=== PATIENT | female | born 1940 | race Caucasian/White ===

== ENCOUNTER → 2021-05-09 10:06 | Outpatient (CLI) | payer MEDICARE, SELFPAY ==
[2021-05-09 14:13] LABS: COVID19 -Nasal RAPID Negative (Negative)
== END ==
PROVIDERS: Family Provider Internal Medicine Geriatric Medicine; Visit Provider Nurse Practitioner Family
DX: Z20.822 Contact with and (suspected) exposure to COVID-19 (principal)
CPT/HCPCS: 87635; C9803

== ENCOUNTER 2021-05-11 07:14 | Day surgery (SDC) | payer MEDICARE, SELFPAY ==
--- NOTE | 2021-05-10 18:42 | PM.PREOP ---
Pre-operative Note COVID-19 COVID-19 status: Negative Criteria for continued procedure: Expected advancement of disease process, Possibility delay results in more complex future surgery or treatment, Increased loss of function, Delay expected to result in less-positive ultimate med/surg outcome and Non-surgical alternatives not available or appropriate per current SOC Interval Note History & Physical reviewed/Exam performed by Physician: Yes Changes to H&P: No H&P completed within 30 days and has changed as indicated here:: Fasting glucose is 110
--- NOTE | 2021-05-10 18:44 | P.OP_ITS ---
Operative Date/Time/Diagnoses Date of procedure: 05/11/21 Time of procedure: 08:45 Procedure & Clinicians Procedure: Preoperative diagnoses: 1. Right significant nuclear sclerotic and cortical cataract. 2. Diabetes without retinopathy 3. Depression 4. Multiple allergies Postoperative diagnoses: 1. Cataract removed by phacoemulsification with placement of posterior chamber intraocular lens. Procedure: Phacoemulsification with posterior chamber intraocular lens implant Surgeon: Rupali Garcia MD Complications: None Specimen: None Implant: DIBOO+19.0 Blood loss: None Anesthesia: Retrobulbar with monitored standby Description of procedure: Patient presents with a complaint of decreased vision due to cataract which is affecting activities of daily living with problems with night driving. The patient wants surgery to improve vision. The patient understands the extra risk of surgery during the COVID-19 epidemic and wishes to proceed. They have tested negative for active virus within 72 hours of the procedure. The patient was taken to the operating room and given IV sedation. A retrobulbar block consisting of 6 cc of 2% xylocaine without epinephrine mixed half and half with 0.5% Marcaine with 1 cc of hyaluronidase added is placed between the medial and lateral 1/3 of the inferior orbital rim. The eye is manually massaged for 30 sec, prepped using Betadine solution, and draped in the usual sterile fashion. Temporal approach was made, a 1 mm side-port incision was made 90? from the proposed clear corneal incision position. Phenylephrine 1.5% mixed with 1% xylocaine 0.2 cc was placed into the anterior chamber. To improve visibility an air bubble was placed followed by vision blue dye. The excess was then irrigated out BSS. This was then followed by EndoCoat and then Healon was then placed. A 2.6 mm clear incision with a 2.6 mm blade was placed. A 360 degree capsulorrhexis style capsulotomy was then performed with a cystitome needle on a Healon. Hydrodelineation and hydrodissection were performed. The phacoemulsification unit is introduced, and sculpting notice used to groove the central lens. It is then removed in chopping mode. Epi nucleus is removed with epinuclear mode and irrigation aspiration was used to remove the peripheral cortex. The posterior capsule is polished. The intraocular lens is selected, inspected, power confirmed, and placed in the posterior chamber. The wound was stromally hydrated and tested for leaks, there was none and it was left sutureless. Intracameral moxifloxacin 0.1 cc was placed into the anterior chamber. Kenalog 0.2 cc was placed in the superior subconjunctival space. A drop of antibiotic and was placed and the eye was patched and shielded. The patient was stable and returned to the recovery room in excellent condition. Dictated by: Rupali Garcia MD Copy to: [facility] Same procedure as scheduled: Yes
[2021-05-11] MEDS: PROPARACAINE 0.5% OPHTH SOL 2 DROPS EYE-OP (07:54)
[2021-05-11] MEDS: CATARACT EYE COMPOUND (10 DROPS/SYRINGE) 3 DROPS EYE-OP (07:54)
[2021-05-11 07:56] VITALS: BP 151/71; PULSE 84; RESP 18; TEMP 36.2; O2SAT 98; BMI 18.8
[2021-05-11] MEDS: LIDOCAINE 2% 4 ML, BUPIVACAINE 0.5% (PF) 4 ML, HYALURONIDASE 150 UNIT INJ (09:13)
--- NOTE | 2021-05-11 09:21 | SUR.OPER ---
Supine on eye stretcher, head on extension cradle secured with tape. Arms tucked at sides with blanket. Pillow under knees.
[2021-05-11] MEDS: HYALURONATE SODIUM 30 MG-10 MG/ML SYRINGES 1 BOX INTRAOCULA (09:38)
[2021-05-11] MEDS: TRIAMCINOLONE 50 MG/5 ML VIAL INJ (09:39)
[2021-05-11] MEDS: PHENYLEPHRINE/LIDOCAINE VIAL (OR) 0.2 ML EYE-OP (09:39)
[2021-05-11] MEDS: MOXIFLOXACIN INJ 4 MG/0.8 ML VIAL 0.5 MG EYE-OP (09:39)
[2021-05-11] MEDS: ERYTHROMYCIN OPHTH 1 GM OINT 1 APPLIC EYE-RIGHT (09:40)
[2021-05-11] MEDS: BALANCED SALT IRRIG SOLN NO.2 500 ML, EPINEPHrine 1 MG IRR (09:42)
[2021-05-11] MEDS: TRYPAN BLUE 0.5 ML SYRINGE INJ (09:42)
[2021-05-11 09:55] VITALS: BP 137/72; BP 142/78; PULSE 74; PULSE 79; RESP 16; RESP 18; TEMP 36.1; O2SAT 97; O2SAT 99
== END 2021-05-11 10:08 | disposition home or self-care (01) ==
PROVIDERS: Family Provider Internal Medicine Geriatric Medicine; Referring Provider Ophthalmology; Visit Provider Ophthalmology
PROC: (CPT 66984; principal; 2021-05-11 08:45)
DX: H25.811 Combined forms of age-related cataract, right eye (principal); E11.9 Type 2 diabetes mellitus without complications; F32.9 Major depressive disorder, single episode, unspecified
CPT/HCPCS: 66984; 82962; J0171; J2704; J3301; J3470

== ENCOUNTER → 2021-05-16 13:20 | Outpatient (CLI) | payer MEDICARE, SELFPAY ==
[2021-05-16 14:50] LABS: COVID19 -Nasal RAPID Negative (Negative)
== END ==
PROVIDERS: Family Provider Internal Medicine Geriatric Medicine; PCP Internal Medicine Geriatric Medicine; Visit Provider Family Medicine Sleep Medicine
DX: Z20.822 Contact with and (suspected) exposure to COVID-19 (principal)
CPT/HCPCS: 87635; C9803

== ENCOUNTER 2021-05-18 06:21 | Day surgery (SDC) | payer MEDICARE, SELFPAY ==
--- NOTE | 2021-05-16 18:28 | PM.PREOP ---
Pre-operative Note COVID-19 COVID-19 status: Negative Criteria for continued procedure: Expected advancement of disease process, Possibility delay results in more complex future surgery or treatment, Increased loss of function, Delay expected to result in less-positive ultimate med/surg outcome and Non-surgical alternatives not available or appropriate per current SOC Interval Note History & Physical reviewed/Exam performed by Physician: Yes Changes to H&P: No H&P completed within 30 days and has changed as indicated here:: Fasting glucose is 107.
--- NOTE | 2021-05-16 18:28 | PM.OP.1 ---
Operative Date/Time/Diagnoses Date of procedure: 05/18/21 Time of procedure: 07:45 Procedure & Clinicians Procedure: Preoperative diagnoses: 1. Left complex surgery with use of capsular dye. 2. Mature or advanced nuclear sclerotic and cortical cataract with poor visibility of the anterior capsule increasing surgical risks of complications. 3. Diabetes without retinopathy 4. Depression Postoperative diagnoses: 1. Left Complex surgery with use of capsular dye, 2. Placement of a posterior chamber intraocular lens implant. Surgeon: Rupali Garcia MD Complications: none Specimen: None Implant: DIBOO+19.5 Blood loss: None Anesthesia: Retrobulbar with monitored standby. Description of procedure: Dictated by: Rupali Garcia MD Post operative diagnoses: 1. Left cataract removed with use of capsular dye . 2. Placement of a posterior chamber intraocular lens. Procedure: Phacoemulsification with posterior chamber intraocular lens implant Surgeon: Rupali Garcia MD Blood loss: None Anesthesia: Retrobulbar with monitored standby Description of procedure: Patient has presented with decreased vision due to cataract which is affecting activities of daily living especially driving. The patient wants surgery to improve vision. They understand the extra risk of surgery during the COVID-19 epidemic and wished to proceed. The patient has tested negative for active COVID-19 virus within 72 hours of the procedure. The patient was taken to the operating room and given IV sedation. A retrobulbar block consisting of 6 cc of 2% xylocaine without epinephrine mixed half and half with 0.5% Marcaine with 1 cc of hyaluronidase added is placed between the medial and lateral 1/3 of the inferior orbital rim. The eye is manually massaged for 30 sec, prepped using Betadine solution, and draped in the usual sterile fashion. Temporal approach was made, a 1 mm side-port incision was performed 90 degrees from the planned corneal wound. Phenylephrine 1.5% mixed with 1% xylocaine 0.2 cc was placed into the anterior chamber. [An air bubble was placed and capsular blue dye was placed to improve visibility of the anterior capsule. The dye was irrigated out to reduce bubbles. ]Endocoat followed by Leanaon was then placed. A 2.6 mm clear incision with a 2.6 mm blade was placed. A 360 degree capsulorrhexis style capsulotomy was then performed with a cystitome needle on a Healon greatly aided by the capsular dye. Hydrodelineation and hydrodissection were performed. The phacoemulsification unit is introduced, and sculpting used to groove the central lens. It is then removed in chopping mode. Epi nucleus is removed with epinuclear mode and irrigation aspiration was used to remove the peripheral cortex. The posterior capsule is polished. The intraocular lens is selected, inspected, power confirmed, and placed in the posterior chamber. The wound was stromally hydrated and tested for leaks, there was none and was left sutureless. Intracameral moxifloxacin 0.1 cc was placed into the anterior chamber. Kenalog 0.2 cc was placed in the superior subconjunctival space. A drop of antibiotic and was placed and the eye was patched and shielded. The patient was stable and returned to the recovery room in excellent condition. Dictated by: Rupali Garcia MD Copy to: [facility] Same procedure as scheduled: Yes
[2021-05-18] MEDS: PROPARACAINE 0.5% OPHTH SOL 2 DROPS EYE-OP (07:05)
[2021-05-18] MEDS: CATARACT EYE COMPOUND (10 DROPS/SYRINGE) 3 DROPS EYE-OP (07:06)
[2021-05-18 07:10] VITALS: BP 140/74; PULSE 78; RESP 16; TEMP 36.1; O2SAT 99; BMI 18.6
[2021-05-18] MEDS: HYALURONATE SODIUM 30 MG-10 MG/ML SYRINGES 1 BOX INTRAOCULA (08:15)
[2021-05-18] MEDS: MOXIFLOXACIN INJ 4 MG/0.8 ML VIAL 0.5 MG EYE-OP (08:15)
[2021-05-18] MEDS: TRIAMCINOLONE 50 MG/5 ML VIAL INJ (08:16)
[2021-05-18] MEDS: TRYPAN BLUE 0.5 ML SYRINGE INJ (08:16)
[2021-05-18] MEDS: LIDOCAINE 2% 4 ML, BUPIVACAINE 0.5% (PF) 4 ML, HYALURONIDASE 150 UNIT INJ (08:19)
[2021-05-18] MEDS: BALANCED SALT IRRIG SOLN NO.2 500 ML, EPINEPHrine 1 MG IRR (08:20)
[2021-05-18] MEDS: ERYTHROMYCIN OPHTH 1 GM OINT 1 APPLIC EYE-LEFT (08:21)
[2021-05-18] MEDS: HYALURONATE SODIUM 10 MG/ML SYRINGE INJ (08:22)
[2021-05-18] MEDS: PHENYLEPHRINE/LIDOCAINE VIAL (OR) 0.2 ML EYE-OP (08:22)
[2021-05-18 08:39] VITALS: BP 140/75; PULSE 83; RESP 16; TEMP 36.6; O2SAT 98
== END 2021-05-18 08:53 | disposition home or self-care (01) ==
LOC: OR 06:23
PROVIDERS: Family Provider Internal Medicine Geriatric Medicine; PCP Internal Medicine Geriatric Medicine; Referring Provider Ophthalmology; Visit Provider Ophthalmology
PROC: (CPT 66984; principal; 2021-05-18 07:45)
DX: H25.12 Age-related nuclear cataract, left eye (principal); F32.9 Major depressive disorder, single episode, unspecified; E11.9 Type 2 diabetes mellitus without complications
CPT/HCPCS: 66984; 82962; J0171; J2704; J3301; J3470

== ENCOUNTER → 2022-01-26 08:28 | Outpatient (CLI) | payer MEDICARE, SELFPAY ==
[2022-01-26 10:17] LABS: Add Manual Diff / Slide Review NO; Basophils Absolute Auto 0 /uL (0-100); Basophils Percent Auto 0.8 % (0-2); Eosinophils Absolute Auto 100 /uL (0-450); Eosinophils Percent Auto 1.7 % (2-4); Hematocrit 39.4 % (36-46); Hemoglobin 13.1 g/dL (12.0-16.0); Lymphocytes Absolute Auto 1600 /uL (1100-4500); Mean Corpuscular HGB Conc 33.2 % (30-36); Mean Corpuscular Hemoglobin 32.3 PG (26-34); Mean Corpuscular Volume 97.2 fL (80-100); Monocytes Absolute Auto 300 /uL (0-900); Monocytes Percent Auto 9.7 % (3-14); Neutrophils Absolute Auto 1400 /uL (1500-7000); Neutrophils Percent Auto 40.8 % (50-75); Platelet Count 208 X10^3/uL (150-400); Red Blood Cell Count 4.06 X10^6/uL (4.0-5.2); Red Cell Distribution Width 13.5 % (11.6-14.8); White Blood Cell Count 3.3 X10^3/uL (4.5-11.0)
[2022-01-26 10:24] LABS: Creatinine Urine Random 68.4 mg/dL; Hemoglobin A1C% w Est Avg Glu 6.2 % (4.0-6.0)
[2022-01-26 10:28] LABS: Microalbumi Creatinin Ratio Ur 17.5 ug/mg CR (<30); Microalbumin Urine Random 1.2 mg/dL (0-1.6)
[2022-01-26 11:01] LABS: Alanine Aminotransferase 20 IU/L (<35); Albumin 4.1 g/dL (3.5-5.0); Albumin Globulin Ratio 1.7 (1.0-2.8); Alkaline Phosphatase 80 U/L (38-126); Aspartate Aminotransferase 24 IU/L (14-36); BUN Creatinine Ratio 24.6 (6-22); Bilirubin Total 0.7 mg/dL (0.2-1.3); Blood Urea Nitrogen 15 mg/dL (7-17); Carbon Dioxide 30 mmol/L (22-32); Chloride 102 mmol/L (98-107); Cholesterol 151 mg/dL (140-199); Estimated Glomerular Filt Rate > 60 mL/min (>60); Globulin 2.4 g/dL (1.7-4.1); Glucose 109 mg/dL (80-110); HDL Cholesterol 87 mg/dL (40-60); HEMOLYSIS < 15 (0-50); LDL Cholesterol Calculated 50 mg/dL (<100); Potassium 4.4 mmol/L (3.4-5.1); Sodium 138 mmol/L (137-145); Total Protein 6.5 g/dL (6.3-8.2); Triglycerides 68 mg/dL (35-150)
[2022-01-26 11:10] LABS: Vitamin D 25 Hydroxy (D3) 51.4 ng/mL (30.0-100.0)
== END ==
PROVIDERS: Family Provider Internal Medicine Geriatric Medicine; PCP Internal Medicine Geriatric Medicine; Referring Provider Internal Medicine Geriatric Medicine; Visit Provider Internal Medicine Geriatric Medicine
DX: I10 Essential (primary) hypertension (principal); E11.9 Type 2 diabetes mellitus without complications; M83.1 Senile osteomalacia; E78.2 Mixed hyperlipidemia; Z78.0 Asymptomatic menopausal state
CPT/HCPCS: 36415; 80053; 80061; 82043; 82306; 82570; 83036; 85025

== ENCOUNTER → 2022-08-16 09:53 | Outpatient (CLI) | payer MEDICARE, SELFPAY ==
--- NOTE | 2022-08-16 09:56 | DI.RAD.S_ITS ---
PROCEDURE: XR KNEE LT 3V INDICATIONS: CHRONIC PAIN OF LEFT KNEE TECHNIQUE: 3 views of the knee were acquired. COMPARISON: None. FINDINGS: Bones: No fractures or dislocations. No suspicious bony lesions. Mild tricompartment osteophytes. Mild medial compartment joint space loss. Soft tissues: No joint effusion. No suspicious soft tissue calcifications. IMPRESSION: Degenerative arthritis of the left knee. Dictated by: Amor Matthews M.D. on 08/16/2022 at 12:05 Approved by: Amor Matthews M.D. on 08/16/2022 at 12:06
--- NOTE | 2022-08-16 09:56 | DI.RAD.S_ITS ---
PROCEDURE: XR FEMUR LT MIN 2V INDICATIONS: LEFT THIGH PAIN TECHNIQUE: AP and lateral views of the femur were acquired. COMPARISON: None. FINDINGS: Bones: No fractures or dislocations. No suspicious bony lesions. Mild degenerative arthritis at the hip. Degenerative arthritis at the knee. Soft tissues: No suspicious soft tissue calcifications or masses. IMPRESSION: 1. Degenerative arthritis involving the left hip and left knee. 2. No acute bony abnormality of the left femur. Dictated by: Amor Matthews M.D. on 08/16/2022 at 12:06 Approved by: Amor Matthews M.D. on 08/16/2022 at 12:07
== END ==
PROVIDERS: Family Provider Internal Medicine Geriatric Medicine; PCP Internal Medicine Geriatric Medicine; Referring Provider Internal Medicine Geriatric Medicine; Visit Provider Internal Medicine Geriatric Medicine
DX: M16.12 Unilateral primary osteoarthritis, left hip (principal); M79.652 Pain in left thigh; M17.12 Unilateral primary osteoarthritis, left knee; M25.562 Pain in left knee
CPT/HCPCS: 73552; 73562

== ENCOUNTER → 2022-12-25 07:44 | Outpatient (CLI) | payer MEDICARE, SELFPAY ==
--- NOTE | 2022-12-25 08:32 | DI.RAD.S_ITS ---
PROCEDURE: XR LUMBAR SPINE 2-3V INDICATIONS: OSTEOPOROSIS TECHNIQUE: 3 views of the lumbar spine were acquired. COMPARISON: [facility], CR, XR FEMUR LT MIN 2V, 08/16/2022, 9:53. FINDINGS: Bones: 5 lwi-eaf-jcvccso vertebrae are present. Anterolisthesis of L4 on L5 measuring 0.9 cm. Vertebral body osteophytes. No vertebral body compression fractures. No suspicious bony lesions. Soft tissues: Overlying bowel gas pattern is normal. No suspicious soft tissue calcifications. Presumed calcified fibroid in the left pelvis, unchanged. IMPRESSION: Moderate degenerative changes in the lumbar spine. Grade 1 anterolisthesis of L4 on L5. No compression fracture. Dictated by: Mirza Moran M.D. on 12/25/2022 at 11:05 Approved by: Mirza Moran M.D. on 12/25/2022 at 11:41
--- NOTE | 2022-12-25 08:32 | DI.RAD.S_ITS ---
PROCEDURE: XR THORACIC SPINE 2V INDICATIONS: OSTEOPORSIS TECHNIQUE: 3 views of the thoracic spine were acquired. COMPARISON: [facility], CR, XR LUMBAR SPINE 2-3V, 12/25/2022, 8:40. FINDINGS: Bones: No fractures or dislocations. No suspicious bony lesions. Mild degenerative changes. 12 pairs of ribs are noted, and appear intact where visualized. Soft tissues: No paravertebral stripe thickening. IMPRESSION: No compression fracture. Dictated by: Mirza Moran M.D. on 12/25/2022 at 11:41 Approved by: Mirza Moran M.D. on 12/25/2022 at 11:42
[2022-12-25 08:48] LABS: Alanine Aminotransferase 31 IU/L (<35); Albumin 4.2 g/dL (3.5-5.0); Albumin Globulin Ratio 1.8 (1.0-2.8); Alkaline Phosphatase 69 U/L (38-126); Aspartate Aminotransferase 30 IU/L (14-36); BUN Creatinine Ratio 27.1 (6-22); Bilirubin Total 0.6 mg/dL (0.2-1.3); Blood Urea Nitrogen 16 mg/dL (7-17); Carbon Dioxide 29 mmol/L (22-32); Chloride 104 mmol/L (98-107); Estimated Glomerular Filt Rate > 60 mL/min (>60); Globulin 2.4 g/dL (1.7-4.1); Glucose 125 mg/dL (80-110); HEMOLYSIS < 15 (0-50); Sodium 138 mmol/L (137-145); Total Protein 6.6 g/dL (6.3-8.2)
[2022-12-25 08:55] LABS: Vitamin D 25 Hydroxy (D3) 30.8 ng/mL (30.0-100.0)
[2022-12-27 09:09] LABS: Parathyroid Hormone Int 32 pg/mL (15-65)
[2022-12-27 09:44] LABS: Creatinine, Urine 70.7 mg/dL (Not Estab.); N-telo/Creat. Ratio 36 (0-89); N-telopeptide 226 nmol BCE (Not Estab.)
== END ==
PROVIDERS: Family Provider Internal Medicine Geriatric Medicine; PCP Internal Medicine Geriatric Medicine; Referring Provider Internal Medicine Endocrinology, Diabetes & Metabolism; Visit Provider Internal Medicine Endocrinology, Diabetes & Metabolism
DX: M81.0 Age-related osteoporosis without current pathological fracture (principal); M43.17 Spondylolisthesis, lumbosacral region
CPT/HCPCS: 36415; 72070; 72100; 80053; 82306; 82523; 82570; 83970

== ENCOUNTER → 2022-12-26 11:02 | Outpatient (CLI) | payer MEDICARE, SELFPAY ==
--- OUTSIDE RECORDS SUMMARY | 2023-01-19 14:54 | XMS_ITS | Referral Summary ---
Author Name Unknown Organization [facility] Address [address] [place] [address] Care Team Providers Care Disintegrator Name Role Phone Lotus Bowman MD Primary Care Provider Reason for Referral * Consultation (Routine) - Authorized Specialty Diagnoses / Procedures Referred By Contmario t Referred To Contact Obstetrics and Gynecology Diagnoses Uterine leiomyoma, unspecified location Tiffany Wiley MD [address] [place] [address] [address] Referral ID Status Reason Start Date Expiration Date Visits Requested Visits Authorized [id number] Authorized Specialty Services Required 09/11/2022 09/06/2023 15 15 Reason for Visit * Reason Onset Date Comments Test Results 09/08/2022 Referral 09/08/2022 Encounter Details Date Type Department Care Team Description 09/08/2022 Telephone [facility] [place] [address] [place] [id number] Lotus Bowman MD [address] [place] [address] Test Results; Referral Allergies Active Allergy Reactions Severity Noted Date Comments Calcium 03/29/2022 Severe constipation Codeine GI intolerance 03/29/2022 Vomiting, constipation Contrast Dye Hives Medium 03/29/2022 Gabapentin GI intolerance 10/12/2016 Penicillins Itching,Rash Low 12/30/2009 Sulfa (Sulfonamide Antibiotics) Rash Low 12/30/2009 Trazodone Other (see comments) 06/06/2018 Muscle spasm, lip twitch documented as of this encounter (statuses as of 09/29/2022) Medications Medication Sig Dispensed Refills Start Date End Date Status ketotifen (ZADITOR) 0.025 % (0.035 %) ophthalmic solution Administer 1 drop into both eyes every 12 hours 0 07/31/2016 Active cholecalciferol, vitamin D3, (VITAMIN D3 ORAL) Take 1 tablet by mouth daily. 0 Active magnesium 250 mg tablet Take 1 tablet by mouth daily. 0 07/31/2016 Active fluticasone (FLONASE) 50 mcg/actuation nasal spray Administer 2 sprays into each nostril daily 0 11/02/2013 Active Ca-D3-mag gd-hvln-tba-johnie-bor 600 mg calcium- 20 mcg-50 mg tablet Take 1 tablet by mouth daily. 0 06/07/2015 Active polyethylene glycol (GLYCOLAX) 17 gram packet Take 17 g by mouth daily as needed 0 Active atorvastatin (LIPITOR) 10 mg tabletIndications:Mi xed hyperlipidemia Take 1 tablet (10 mg total) by mouth nightly 90 tablet 3 12/26/2021 Active citalopram (CeleXA) 40 mg tabletIndications:Ch ronic depression Take 1 tablet (40 mg total) by mouth every morning for mood. 90 tablet 3 12/26/2021 12/26/2022 Active DULoxetine (CYMBALTA) 60 mg capsuleIndications:F ibromyalgia Take 1 capsule (60 mg total) by mouth daily 90 capsule 3 12/26/2021 12/26/2022 Active lancets (Microlet Lancet) miscIndications:Cont rolled type 2 diabetes mellitus without complication, without long-term current use of insulin ([facility]) Use to check blood sugars once daily for diabetes. 100 each 3 02/23/2022 Active blood sugar diagnostic (Contour Test Strips) stripIndications:Con trolled type 2 diabetes mellitus without complication, without long-term current use of insulin ([facility]) Use to test blood sugars once daily for diabetes. 100 strip 3 02/23/2022 Active estradioL (ESTRACE) 0.01 % (0.1 mg/gram) vaginal creamIndications:Atr ophic vaginitis Insert 1 g into the vagina nightly Apply to vagina nightly 3 times a week 42.5 g 11 03/17/2022 Active losartan (COZAAR) 50 mg tabletIndications:Es sential hypertension Take 1 tablet (50 mg total) by mouth daily 90 tablet 3 04/12/2022 04/12/2023 Active documented as of this encounter (statuses as of 09/29/2022) Active Problems Problem Noted Date Palpitations 08/24/2022 Muscle cramps 08/24/2022 Last Assessment & Plan: Hold statin for a week and see if this improves. Quadriceps muscle strain, left, subseque nt encounter 08/24/2022 Last Assessment & Plan: If this is not resolved in another 2-4 weeks, then we need further work up. Consider PT for stiffness which is likely due to arthritis. Knee Xray showed mild osteoarthritis. Quadriceps strain, left, initial encount er 08/08/2022 Other female genital prolapse 08/08/2022 Atrophic vaginitis 03/17/2022 Last Assessment & Plan: She may have had a small cyst that is now resolved. Dysuria 02/23/2022 Last Assessment & Plan: Patient having burning and stinging with urination for the last week. No blood in the urine, fever, chills. Also having increased urinary frequency and urgency. Urine dipstick negative for leukocytes and nitrites. Urine sample sent to the lab for further evaluation. Patient started on Keflex 500 mg twice daily for 7 days based on clinical symptoms. We will follow-up on final urine results. Osteopenia of neck of femur 12/26/2021 Eustachian tube dysfunction, bilateral 1 02/25/2021 Last Assessment & Plan: Start using saline nasal spray as needed. Essential hypertension 12/10/2020 Last Assessment & Plan: Improved with increase in Losartan dose. Home BP readings now in 130 systolic. Periodontal disease 12/10/2020 Last Assessment & Plan: Continue with current regimen. AK (actinic keratosis) 12/10/2020 Last Assessment & Plan: I recommend use of moisturizer. Area treated at today's visit with liquid nitrogen. Treat area as a wound. Keep clean and dry. If not resolved in 2 weeks, we may consider referral to dermatology. Medicare annual wellness visit, [place] nt 12/05/2019 Last Assessment & Plan: Okay to continue with yearly mammogram. DEXA this year. Immunizations up to date. Benign paroxysmal positional vertigo due to bilateral vestibular disorder 12/05/2019 Fibromyalgia 09/12/2018 Last Assessment & Plan: Continue with Duloxetine 60 mg daily. Chronic insomnia 06/09/2018 Osteoarthritis of multiple joints 2017 Last Assessment & Plan: If medically cleared to do so, you can take an prbn-hoi-hluaaru anti- inflammatory medicine for pain and swelling, such as ibuprofen (Advil, Motrin) or naproxen (Aleve). Read and follow all instructions on the label. You may perform the demonstrated stretches for both hands 1-2 times daily for improved flexibility and to decrease the fingers becoming stiff. If your symptoms worsen or fail to improve, please let me know. We may consider you following up with the hand specialist or further evaluation. Chronic depression 08/13/2017 Last Assessment & Plan: Continue with citalopram 40 mg daily for mood. 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 Last lab work done in January showed hemoglobin A1c 6.2%. Continue to eat healthy. Copy of labs provided to the patient as she requested. Hyperlipidemia 05/06/2013 Last Assessment & Plan: Continue with atorvastatin 10 mg daily. Fasting lab work ordered today. To be completed in January. documented as of this encounter (statuses as of 09/29/2022) Resolved Problems Problem Noted Date Resolved Date Fibromyalgia 08/13/2017 12/10/2020 GERD (gastroesophageal reflux disease) 4 12/05/2019 Last Assessment & Plan: Well controlled. Fibromyositis 07/08/2012 09/12/2018 Last Assessment & Plan: Continue duloxetine 60 mg daily. documented as of this encounter (statuses as of 09/29/2022) Immunizations Name Administration Dates Next Due FLU High Dose 65+ (Fluzone) 10/29/2020,0 10/12/2016,12/01/2015,10/27,11/20/2013 FLU PF 6-35 Mo (Fluzone 0.25 mL Syringe) 12/04/2012,11/21/2011 H1N1 All Forms 01/18/2009 Hep A, Adult (Havrix, Vaqta) 07/08/2012,01/08/20 12 Influenza, Quadrivalent 10/21/2021,10/29,10/31/2019,10/31,10/22/2017,11/20/2013,12/04/2012 ,11/18/2012,12/01/2009,01/22/2008 Live Zoster (Zostavax) 05/15/2011 Pfizer Covid Vaccine, Bivalent (12+) 12/01/2021 Irxwku-WLPC-MyX-2 Vaccine 05/08/2020,04/17/2020 Pneumococcal Conjugate PCV13 (Euuwhbt41) 05/29/2014 Pneumococcal Polysaccharide PPV23 (Ghoftxxvk48) 03/21/2006 Recombinant Zoster (Shingrix) 10/09/2018, 019 TD Preservative Free (Generic) 03/01/1992 TD Preservative Free (Tenivac) 03/01/1992 Tdap (Boostrix,Adacel) 12/10/2020,10/05/2011 VFC Pneumococcal Conjugate P CV13 (Hbhkbve71) 05/29/2014 documented as of this encounter Social History Tobacco Use Types Packs/Day Years Used Date Smoking Tobacco: Never Passive Smoke Exposure: Never Smokeless Tobacco: Never Alcohol Use Standard Drinks/Week Comments Yes 2 (1 standard drink = 0.6 oz pur e alcohol) Sex Assigned at Date Recorded Not on file Job Start Date Occupation Industry Not on file Not on file Not on file documented as of this encounter Miscellaneous Notes * Telephone Encounter - Nel Gonzales - 09/28/2022 11:47 AM PDT Notes placed in referral under communications. * Telephone Encounter - Lotus Bowman MD - 09/28/2022 10:42 AM PDT Referral has been placed. Coordinate with epic ambulatory specialists that Pt prefers to go to [facility] in [place]. * Addendum Note - Tammi Cain MA - 09/28/2022 7:11 AM PDTAddended by: TAMMI CAIN on: 09/28/2022 07:11 AM Modules accepted: Orders * Telephone Encounter - Leno Story - 09/27/2022 2:43 PM PDT Patient is calling regarding Requesting to have the referral for [place]ens sent to [place]. She is not sure of any specific clinic. Please call patient to advise Please advise: [phone] Okay to leave message * Telephone Encounter - Tiffany Wiley MD - 09/11/2022 9:23 AM PDT This had been addressed. * Addendum Note - Tiffany Wiley MD - 09/11/2022 9:23 AM PDTAddended by: TIFFANY WILEY on: 09/11/2022 09:23 AM Modules accepted: Orders * Telephone Encounter - Kiera Tsang MA - 09/08/2022 2:38 PM PDT Spoke to patient regarding test results. Confirmed name and . Notified of providers note. Patient expressed understanding. Pended internal referral to women's health [facility]. Routed to preceptor of the day. * Addendum Note - Kiera Tsang MA - 09/08/2022 2:38 PM PDTAddended by: KIERA TSANG on: 09/08/2022 02:38 PM Modules accepted: Orders * Telephone Encounter - Kiera Tsang MA - 09/08/2022 2:35 PM PDT Who is requesting the referral? The Patient What specialty is the referral for? Specialty Clinic: Women's health What is the name of the provider being referred to? [facility] Women's health What is the clinic name and contact information? Unspecified What health issue or diagnosis is this for? Uterine Fibroids Level of urgency? Urgency: Routine When was the last time the patient was seen in clinic for this issue? 08/24/22 (If urgent, please communicate this directly to attending) (appt needed if not a renewal of an referral or if the patient not been seen for the issue within the past 1 year by our office--at which point an annual visit should be scheduled.) * Telephone Encounter - Nel Gonzales - 09/08/2022 2:02 PM PDT Warm transfer to [place]. * Telephone Encounter - Emily Martins - 09/08/2022 1:58 PM PDT Patient was returning a phone call to our office but couldn't understand the VM as it was garbled. Tried triage but on another line. Warm transfer to front line. * Telephone Encounter - Grace Newman RN - 09/08/2022 1:53 PM PDT I have attempted without success to contact this patient by phone. Per ATS, I left a detailed voicemessage with the provider's instructions/message. Advised to call back for any questions. Please transfer to clinical or triage. Thanks * Telephone Encounter - Grace Newman RN - 09/08/2022 1:40 PM PDT ----- Message from Lotus Bowman MD sent at 09/08/2022 9:00 AM PDT ----- Pelvic US showed 2 fibroids, largest measuring 2.7 cm and small amount of endometrial fluid. Ovaries not identified. Recommend [facility] consult if she still has pelvic fullness. documented in this encounter Plan of Treatment Upcoming Encounters Date Type Specialty Care Team Description 10/03/2022 Office Visit Endocrinology Barney Khanna DO [address] [place] [address] Scheduled Referrals Name Type Priority Associated Diagnoses Orde r Schedule Ambulatory referral to Obstetrics / Gynecology Outpatient Referral Routine Uterine leiomyoma, unspecified location Ordered: 09/11/2022 documented as of this encounter Visit Diagnoses Diagnosis Uterine leiomyoma, unspecified location- Primary documented in this encounter Insurance Payer Benefit Plan / Group Subscriber ID Effective Dates Phone Address Type MEDICARE MEDICARE PART A AND B [id number] 2012-Prese nt [address] [place] [address] [facility] SUPP AARP SUPP [id number] 2016-Prese nt [address] [place] [address] documented as of this encounter Advance Directives Documents on File Type Date Recorded Patient Count Team Clerk Expl rocio POL 09/12/2018 Care Teams Disintegrator Relationship Specialty Start Date End Date Lotus Bowman MD [address] [place] [id number] PCP - General 09/20/16 documented as of this encounter
== END ==
LOC: LAB 11:04
PROVIDERS: Family Provider Internal Medicine Geriatric Medicine; PCP Internal Medicine Geriatric Medicine; Referring Provider Internal Medicine Endocrinology, Diabetes & Metabolism; Visit Provider Internal Medicine Endocrinology, Diabetes & Metabolism
DX: M81.0 Age-related osteoporosis without current pathological fracture (principal)
CPT/HCPCS: 82340; 82570

== ENCOUNTER → 2023-01-22 08:28 | Outpatient (CLI) | payer MEDICARE, SELFPAY ==
[2023-01-22 09:05] LABS: Add Manual Diff / Slide Review NO; Basophils Absolute Auto 0 /uL (0-100); Basophils Percent Auto 0.6 % (0-2); Eosinophils Absolute Auto 100 /uL (0-450); Eosinophils Percent Auto 2.8 % (2-4); Hemoglobin 13.2 g/dL (12.0-16.0); Lymphocytes Absolute Auto 1800 /uL (1100-4500); Lymphocytes Percent Auto 44.6 % (25-40); Mean Corpuscular HGB Conc 33.9 % (30-36); Mean Corpuscular Volume 97.3 fL (80-100); Monocytes Absolute Auto 400 /uL (0-900); Monocytes Percent Auto 10.9 % (3-14); Neutrophils Absolute Auto 1700 /uL (1500-7000); Neutrophils Percent Auto 41.1 % (50-75); Platelet Count 213 X10^3/uL (150-400); Red Blood Cell Count 4.01 X10^6/uL (4.0-5.2); Red Cell Distribution Width 13.5 % (11.6-14.8)
[2023-01-22 09:10] LABS: Hemoglobin A1C% w Est Avg Glu 6.1 % (4.0-6.0)
[2023-01-22 09:34] LABS: Cholesterol 161 mg/dL (140-199); HDL Cholesterol 91 mg/dL (40-60); LDL Cholesterol Calculated 52 mg/dL (<100); Triglycerides 88 mg/dL (35-150)
== END ==
PROVIDERS: Family Provider Internal Medicine Geriatric Medicine; PCP Internal Medicine Geriatric Medicine; Referring Provider Internal Medicine Geriatric Medicine; Visit Provider Internal Medicine Geriatric Medicine
DX: E11.9 Type 2 diabetes mellitus without complications (principal); E78.2 Mixed hyperlipidemia
CPT/HCPCS: 36415; 80061; 83036; 85025

== ENCOUNTER → 2023-02-02 08:11 | Outpatient (CLI) | payer MEDICARE, SELFPAY ==
[2023-02-02 09:48] LABS: BUN Creatinine Ratio 28.1 (6-22); Blood Urea Nitrogen 16 mg/dL (7-17); Calcium 9.6 mg/dL (8.4-10.2); Carbon Dioxide 26 mmol/L (22-32); Chloride 99 mmol/L (98-107); Estimated Glomerular Filt Rate > 60 mL/min (>60); Glucose 123 mg/dL (80-110); HEMOLYSIS < 15 (0-50); Potassium 4.7 mmol/L (3.4-5.1); Sodium 134 mmol/L (137-145)
== END ==
PROVIDERS: Family Provider Internal Medicine Geriatric Medicine; PCP Internal Medicine Geriatric Medicine; Referring Provider Internal Medicine Endocrinology, Diabetes & Metabolism; Visit Provider Internal Medicine Endocrinology, Diabetes & Metabolism
DX: M81.0 Age-related osteoporosis without current pathological fracture (principal)
CPT/HCPCS: 36415; 80048

== ENCOUNTER → 2023-03-01 08:42 | Outpatient (CLI) | payer MEDICARE, SELFPAY ==
[2023-03-01 10:39] LABS: Vitamin D 25 Hydroxy (D3) 47.3 ng/mL (30.0-100.0)
[2023-03-05 14:42] LABS: Creatinine, Urine 62.3 mg/dL (Not Estab.); N-telo/Creat. Ratio 44 (0-89); N-telopeptide 242 nmol BCE (Not Estab.)
== END ==
PROVIDERS: Family Provider Internal Medicine Geriatric Medicine; PCP Internal Medicine Geriatric Medicine; Referring Provider Internal Medicine Endocrinology, Diabetes & Metabolism; Visit Provider Internal Medicine Endocrinology, Diabetes & Metabolism
DX: M81.0 Age-related osteoporosis without current pathological fracture (principal)
CPT/HCPCS: 36415; 82306; 82523; 82570

== ENCOUNTER → 2023-03-05 10:56 | Outpatient (CLI) | payer MEDICARE, SELFPAY ==
[2023-03-05 12:50] LABS: BUN Creatinine Ratio 29.1 (6-22); Blood Urea Nitrogen 16 mg/dL (7-17); Calcium 9.9 mg/dL (8.4-10.2); Carbon Dioxide 28 mmol/L (22-32); Chloride 100 mmol/L (98-107); Estimated Glomerular Filt Rate > 60 mL/min (>60); Glucose 115 mg/dL (80-110); HEMOLYSIS 22 (0-50); Sodium 132 mmol/L (137-145)
[2023-03-05 16:33] LABS: Vitamin D 25 Hydroxy (D3) 41.1 ng/mL (30.0-100.0)
[2023-03-07 11:36] LABS: Creatinine, Urine 31.9 mg/dL (Not Estab.); N-telo/Creat. Ratio 31 (0-89); N-telopeptide 87 nmol BCE (Not Estab.)
== END ==
PROVIDERS: Family Provider Internal Medicine Geriatric Medicine; PCP Internal Medicine Geriatric Medicine; Referring Provider Internal Medicine Endocrinology, Diabetes & Metabolism; Visit Provider Internal Medicine Endocrinology, Diabetes & Metabolism
DX: M81.0 Age-related osteoporosis without current pathological fracture (principal)
CPT/HCPCS: 36415; 80048; 82306; 82523; 82570

== ENCOUNTER → 2023-03-30 08:12 | Outpatient (CLI) | payer MEDICARE, SELFPAY ==
[2023-03-30 08:45] LABS: Estimated Glomerular Filt Rate > 60 mL/min (>60)
--- NOTE | 2023-03-30 09:40 | DI.CT.S_ITS ---
PROCEDURE: CT ABDOMEN PELVIS W CON INDICATIONS: Right lower quadrant pain TECHNIQUE: After the administration of intravenous contrast, axial sections acquired from the lung bases to the pubic symphysis. Coronal and sagittal reformats were performed. For radiation dose reduction, the following was used: automated exposure control, adjustment of mA and/or kV according to patient size. COMPARISON: None. FINDINGS: Image quality: Suboptimal due to motion artifact. Lower Chest: Circumferential thickening of the lower esophagus. Small hiatal hernia. ABDOMEN: Liver: Scattered subcentimeter hypoattenuating lesions, too small to characterize by CT but probably small cysts. Gallbladder: Not visualized Biliary ducts: No biliary dilation. Pancreas: No ductal dilation. Spleen: Size is within normal limits. Adrenal Glands: No adrenal nodules. Kidneys and Ureters: No hydronephrosis. No solid mass. No complex renal cystic lesion which requires follow up. Stomach and Bowel: Normal colonic caliber, without significant wall thickening. Large colonic stool load. Appendix not identified, but there is no pericecal fat stranding to suggest appendicitis. Peritoneum: No abnormal intraperitoneal fluid. No free air. Ventral Wall: No significant ventral hernia. Abdominal Nodes: No retroperitoneal or mesenteric adenopathy by size criteria. Vessels: Aorta and inferior vena cava are normal in size. PELVIS: Pelvic Organs: Calcified left uterine fibroid.. Bladder: No bladder wall thickening, accounting for underdistention. Pelvic Nodes: No enlarged lymph nodes. Miscellaneous: No inguinal hernias are seen. Bones: No aggressive osseous abnormality. Degenerative disc disease. Grade 1 anterolisthesis of L4 on L5 secondary to facet arthrosis. IMPRESSION: Appendix not identified, but there is no pericecal fat stranding to suggest appendicitis. Large colonic stool load. Circumferential thickening of the lower esophagus, suggestive of esophagitis or less likely malignancy. Correlate with symptoms and consider GI referral if negative for symptoms of esophagitis. Dictated by: Zion Isabel M.D. on 03/30/2023 at 12:48 Approved by: Zion Isabel M.D. on 03/30/2023 at 12:51
== END ==
LOC: CT 08:13
PROVIDERS: Radiology Diagnostic Radiology; Family Provider Internal Medicine Geriatric Medicine; PCP Internal Medicine Geriatric Medicine; Referring Provider Internal Medicine Geriatric Medicine; Visit Provider Internal Medicine Geriatric Medicine
DX: R10.31 Right lower quadrant pain (principal); D25.9 Leiomyoma of uterus, unspecified; M47.816 Spondylosis without myelopathy or radiculopathy, lumbar region; M54.9 Dorsalgia, unspecified; G89.29 Other chronic pain
CPT/HCPCS: 36415; 74177; 82565

== ENCOUNTER → 2023-04-16 10:51 | Outpatient (CLI) | payer MEDICARE, SELFPAY ==
--- NOTE | 2023-04-16 | DI.MG.S_ITS ---
BILATERAL DIGITAL SCREENING MAMMOGRAM 3D/2D WITH CAD: 04/16/2023 CLINICAL: Routine screening. Comparison is made to exams dated: 11/08/2021 mammogram, 09/13/2020 mammogram, 09/12/2019 mammogram, and 08/29/2018 mammogram - [facility]. Both breasts are extremely dense, which lowers the sensitivity of mammography (category d />75% glandular tissue). Current study was also evaluated with a Computer Aided Detection (CAD) system. There are benign calcifications in both breasts. No significant masses, calcifications, or other findings are seen in either breast. There has been no significant interval change. IMPRESSION: BENIGN There is no mammographic evidence of malignancy. A 1 year screening mammogram is recommended. Based on the Tyrer Cuzick model (a risk assessment model) the patient's lifetime risk is 1.6% and her 10 year risk is 0.0%. According to the ACR, ACS, and NCCN guidelines, an annual breast MRI exam along with mammogram is recommended if the patient's lifetime risk is 20% or greater. This exam was interpreted at Station ID: [id number]. NOTE: For mammograms, a report in lay terms will be sent to the patient. Approximately 15% of breast malignancies will not be visualized mammographically. In the management of a palpable breast mass, a negative mammogram must not discourage biopsy of a clinically suspicious lesion. Electronically Signed By: Mirza rust/bossman:04/16/2023 13:48:26 letter sent: Normal Exam ACR BI-RADS Category 2: Benign Finding(s) [id number]
== END ==
LOC: MAMMO 10:52
PROVIDERS: Family Provider Internal Medicine Geriatric Medicine; PCP Internal Medicine Geriatric Medicine; Referring Provider Internal Medicine Geriatric Medicine; Visit Provider Internal Medicine Geriatric Medicine
DX: Z12.31 Encounter for screening mammogram for malignant neoplasm of breast (principal); R92.343 Mammographic extreme density, bilateral breasts
CPT/HCPCS: 77063; 77067

== ENCOUNTER → 2023-06-01 09:01 | Outpatient (CLI) | payer MEDICARE, SELFPAY ==
[2023-06-01 10:12] LABS: Add Manual Diff / Slide Review NO; Basophils Absolute Auto 0 /uL (0-100); Basophils Percent Auto 0.9 % (0-2); Eosinophils Absolute Auto 100 /uL (0-450); Eosinophils Percent Auto 2.5 % (2-4); Hemoglobin 12.4 g/dL (12.0-16.0); Lymphocytes Absolute Auto 1400 /uL (1100-4500); Lymphocytes Percent Auto 42.7 % (25-40); Mean Corpuscular HGB Conc 33.4 % (30-36); Mean Corpuscular Hemoglobin 33.1 PG (26-34); Mean Corpuscular Volume 99.3 fL (80-100); Monocytes Absolute Auto 400 /uL (0-900); Monocytes Percent Auto 12.4 % (3-14); Neutrophils Absolute Auto 1400 /uL (1500-7000); Neutrophils Percent Auto 41.5 % (50-75); Platelet Count 190 X10^3/uL (150-400); Red Blood Cell Count 3.73 X10^6/uL (4.0-5.2); Red Cell Distribution Width 13.2 % (11.6-14.8); White Blood Cell Count 3.3 X10^3/uL (4.5-11.0)
[2023-06-01 10:31] LABS: Alanine Aminotransferase 16 IU/L (<35); Albumin 3.9 g/dL (3.5-5.0); Albumin Globulin Ratio 1.6 (1.0-2.8); Alkaline Phosphatase 48 U/L (38-126); Aspartate Aminotransferase 24 IU/L (14-36); Bilirubin Total 0.6 mg/dL (0.2-1.3); Blood Urea Nitrogen 13 mg/dL (7-17); Calcium 9.3 mg/dL (8.4-10.2); Carbon Dioxide 30 mmol/L (22-32); Chloride 101 mmol/L (98-107); Estimated Glomerular Filt Rate > 60 mL/min (>60); Globulin 2.4 g/dL (1.7-4.1); Glucose 117 mg/dL (80-110); HEMOLYSIS < 15 (0-50); Potassium 4.5 mmol/L (3.4-5.1); Sodium 132 mmol/L (137-145); Total Protein 6.3 g/dL (6.3-8.2)
[2023-06-01 10:38] LABS: High Sensitivity CRP - Cardiac < 0.3 mg/L (1.0-3.0); Rheumatoid Factor < 8.6 IU/mL (<12.0)
[2023-06-01 11:25] LABS: Erythrocyte Sedimentation Rate 4 MM/HR (0-20)
== END ==
LOC: LAB 09:03
PROVIDERS: Family Provider Internal Medicine Geriatric Medicine; PCP Internal Medicine Geriatric Medicine; Referring Provider Ophthalmology; Visit Provider Ophthalmology
DX: H53.123 Transient visual loss, bilateral (principal); H57.13 Ocular pain, bilateral
CPT/HCPCS: 36415; 80053; 85025; 85651; 86140; 86430

== ENCOUNTER → 2023-06-15 12:58 | Outpatient (CLI) | payer MEDICARE, SELFPAY ==
--- NOTE | 2023-06-15 13:01 | DI.MRI.S_ITS ---
PROCEDURE: MR STROKE Pre- and post-contrast brain MRI, non-contrast brain MR angiogram, pre- and postcontrast neck MR angiogram INDICATIONS: VISION CHANGES/VISUAL HALLUCINATIONS/HTN/DM 2 TECHNIQUE: Brain: Noncontrast axial T1 spin echo, axial T2 fast spin echo, sagittal and axial FLAIR, coronal T2 fast spin echo, axial gradient echo, axial diffusion and ADC through the brain. After the administration of contrast, axial 3D VIBE of the cranial vasculature and brain. Brain MRA: Non-contrast 3-D time of flight MR angiogram, with multiple ifbarhq-qqxjicfwk-lwwseosrag (MIP) reformats performed. Neck MRA: Axial and sagittal TruFISP through the neck. Coronal dynamic MR angiogram during administration of contrast in the arterial and venous phases, with 3-dimenstional vtylxhq-qfwlceboc-yrztxovmcy (MIP) reformats constructed from subtraction images. COMPARISON: [facility], CT, SINUS W/O CONTRAST, 04/14/2013, 11:16. FINDINGS: Image quality: Excellent. BRAIN: CSF spaces: Ventricles are normal in size and shape. Basal cisterns are patent. No extra-axial fluid collections. Brain: No intracranial bleeds or mass effects. Velazquez-white matter interface is normal. Diffusion weighted images show no acute infarct. Brainstem appears normal. Normal intravascular flow voids are present. No abnormal intracranial enhancement. Skull and face: Calvarial marrow signal is normal. Orbits appear normal. Note is made of bilateral lens replacements. Sinuses: Sinuses and mastoids are clear. BRAIN MR ANGIOGRAM: Anterior circulation: Intracranial internal carotid arteries are normal in size and enhancement. The flow within the paired anterior cerebral arteries is normal and symmetric. The flow within the middle cerebral arteries is normal and symmetric. The anterior communicating artery is seen. No stenoses, occlusions, or aneurysms. Posterior circulation: Visualized portions of the vertebral arteries demonstrate normal caliber, and join to form a normal appearing basilar artery. There is a prominent left posterior communicating artery seen, with an accompanying diminutive left P1 segment. This is attributed to a type origin of the right posterior cerebral artery, which is considered to be a normal developmental variant of typically no clinical consequence. The flow within the posterior cerebral arteries is normal and symmetric. No aneurysms are seen. NECK MR ANGIOGRAM: Carotids: Incidental note is made of a common origin of the right brachiocephalic artery and the left common carotid artery (bovine type arch). This is considered to be a developmental variant of no clinical consequence. The origins of the common carotid arteries appear patent. The calibers and courses of both common carotid arteries are normal. The bifurcation regions appear normal bilaterally. The internal carotid arteries demonstrate normal course and caliber. Posterior circulation: The origins of the vertebral arteries appear patent. More superior portions of both vertebral arteries demonstrate normal course and caliber, and join to form a normal appearing basilar artery. Miscellaneous: Subclavian arteries appear patent. Pre-contrast images through the neck show no soft tissue abnormalities. IMPRESSION: BRAIN MRI: No findings of acute or subacute infarction can be seen. Note is made of age-appropriate brain parenchymal volume loss and chronic small vessel ischemic changes. No masses or abnormal enhancement can be seen. BRAIN MR ANGIOGRAM: No significant intracranial arterial abnormality is seen. Xvrmjk-mw-Ravmxa developmental anomalies are incidentally noted. NECK MR ANGIOGRAM: Within the arteries of the neck, no hemodynamically significant stenosis can be seen. Bovine type aortic branching pattern incidentally noted. Dictated by: Jacob Christopher M.D. on 06/15/2023 at 14:53 Approved by: Jacob Christopher M.D. on 06/15/2023 at 14:56
== END ==
PROVIDERS: Family Provider Internal Medicine Geriatric Medicine; PCP Internal Medicine Geriatric Medicine; Referring Provider Internal Medicine Geriatric Medicine; Visit Provider Internal Medicine Geriatric Medicine
DX: H53.9 Unspecified visual disturbance (principal); R44.1 Visual hallucinations; E11.9 Type 2 diabetes mellitus without complications; I10 Essential (primary) hypertension
CPT/HCPCS: 70544; 70549; 70553; A9579

== ENCOUNTER → 2023-07-02 07:13 | Outpatient (CLI) | payer MEDICARE, SELFPAY ==
[2023-07-02 07:53] LABS: BUN Creatinine Ratio 27.8 (6-22); Blood Urea Nitrogen 20 mg/dL (7-17); Calcium 9.2 mg/dL (8.4-10.2); Carbon Dioxide 27 mmol/L (22-32); Chloride 107 mmol/L (98-107); Estimated Glomerular Filt Rate > 60 mL/min (>60); Glucose 105 mg/dL (80-110); HEMOLYSIS 20 (0-50); Sodium 137 mmol/L (137-145)
[2023-07-02 08:08] LABS: Vitamin D 25 Hydroxy (D3) 38.7 ng/mL (30.0-100.0)
== END ==
PROVIDERS: Family Provider Internal Medicine Geriatric Medicine; PCP Internal Medicine Geriatric Medicine; Referring Provider Internal Medicine Endocrinology, Diabetes & Metabolism; Visit Provider Internal Medicine Endocrinology, Diabetes & Metabolism
DX: M81.0 Age-related osteoporosis without current pathological fracture (principal)
CPT/HCPCS: 36415; 80048; 82306

== ENCOUNTER 2023-09-20 13:40 | Day surgery (SDC) | payer MEDICARE, SELFPAY ==
--- NOTE | 2023-09-20 | PATH_ITS ---
[facility] Accession Number: [id number] No. of containers..01 Tissue . 01 Material submitted: . gastrointestinal site - ANTRUM . 01 Diagnosis: Stomach, antrum, biopsy: - Antral gastric mucosa with mild reactive gastropathy. - No H. Pylori like organisms identified (by the H/E and immunohistochemical stained slide sections). - No intestinal metaplasia, dysplasia or malignancy identified. - See comment: -- COMMENT: H. Pylori immunohistochemical stain was performed and is negative. TECHNICAL NOTE: THE IMMUNOHISTOCHEMICAL STAINS REPORTED WERE PERFORMED AT [facility] ([address], [facility] [id number]). THEY WERE DEVELOPED AND THEIR PERFORMANCE CHARACTERISTICS DETERMINED BY [employer]. THEY HAVE NOT BEEN CLEARED OR APPROVED BY THE [employer], ALTHOUGH SUCH APPROVAL IS NOT REQUIRED FOR ANALYTE-SPECIFIC REAGENTS OF THIS TYPE. TXN 09/26/2023 1550 Local . 01 Electronically signed: . Jonnathan Bell MD, Pathologist NPI- [id number] . 01 Gross description: . Received in formalin with two patient identifiers and antrum, are four sofia soft tissue fragments, 0.3 to 0.4 cm in greatest dimension. Submitted in A1. ([id number]) /MRV 09/21/2023 1443 Local . 01 Pathologist provided ICD-10: R93.5 . 01 CPT . 553422, S12609 Specimen Comment: A courtesy copy of this report has been sent to [phone] Performed at: [address] [place] [address], [place], [place] [id number] MD Dean Macario MD Phone: [phone]
[2023-09-20 14:09] VITALS: BP 170/68; PULSE 86; RESP 20; TEMP 36.5; O2SAT 98
[2023-09-20] MEDS: LACTATED RINGERS 1,000 ML 42 ML IV (14:24)
--- NOTE | 2023-09-20 14:28 | PM.HP.1 ---
History of Present Illness History of Present Illness Date Patient Seen: 09/20/23 Time Patient Seen: 14:28 Chief complaint: EGD w/poss bx Narrative: Yana is an 83-year-old woman with constipation and abnormal CT scan showing thickening of the esophagus. See prior office note for details. She has been increasing her dietary fiber with improvement. [facility] Medical History Vision disorder Hearing loss Plantar warts Rheumatoid arthritis Osteoarthritis Chronic cough Allergies Depression (~1979) Migraines Headache Arthritis Shoulder pain Osteoporosis (~10/2022) Lumbar disc disease (~1988) Arthritis of sternoclavicular joint (~2019) Fibromyalgia Chronic back pain (~1988) Ankle pain Measles Chicken pox Vertigo (~2020) Recurrent sinusitis Cataracts, bilateral (~2020) GERD (gastroesophageal reflux disease) (~2013) Prediabetes Hypertension Hyperlipidemia Surgical History Anesthesia History of cataract removal with insertion of prosthetic lens History of tubal ligation (~01/18/84) History of back surgery (~12/27/88) History of cholecystectomy (~01/18/84) History of adenoidectomy History of tonsillectomy History of rhinoplasty History of nasal septoplasty History of nasal surgery (~06/26/95) Family History Father Cancer Mother History of heart disease Hypertension Hyperlipidemia Sister Cancer Grandmother History of heart disease Grandfather Cancer Grandmother History of heart disease Social History household members: spouse Smoking Status: Never smoker alcohol intake: current Meds Home Medications and Allergies Home Medications Medication Instructions Recorded Confirmed Type CHOLECALCIFEROL (VITAMIN D) 2,000 iu PO Q DAY ##0 08/28/11 09/20/23 History atorvastatin 10 mg tablet 10 mg DAILY 05/11/21 09/20/23 History citalopram 40 mg tablet 40 mg DAILY 05/11/21 09/20/23 History duloxetine 60 mg capsule,delayed 60 mg PO DAILY 05/11/21 09/20/23 History release losartan 50 mg tablet 50 mg PO DAILY 07/23/23 09/20/23 History naproxen sodium 220 mg tablet 220 mg PO BID 07/23/23 09/20/23 History olopatadine 0.1 % eye drops drp EYE-BOTH 07/23/23 07/23/23 History selenium 200 mcg capsule 200 mcg PO DAILY 07/23/23 09/20/23 History Allergies Allergy/AdvReac Type Severity Reaction Status Date / Time Penicillins Allergy Rash Verified 07/23/23 14:06 Sulfa (Sulfonamide Allergy Rash Verified 07/23/23 14:06 Antibiotics) iv contrast dye Allergy Hives Uncoded 07/23/23 14:06 Exam Vital Signs (past 8 hours): - 09/20/23 14:09 Temperature 97.7 F Pulse Rate 86 Respiratory Rate 20 Blood Pressure 170/68 H Pulse Oximetry 98 Oxygen Delivery Method Room Air Oxygen Delivery Method Room Air Const General: No acute distress Resp Effort & Inspection: normal respiratory effort Assessment & Plan Assessment and plan (1) Abnormal finding on imaging: Status: Acute Plan Yana is an 83-year-old woman with abnormal CT imaging of the stomach. We reviewed the risks and benefits EGD and she would like to proceed. Time-Based Coding :: [TOTAL MINUTES] spent with patient and on the chart (including review of chart, obtaining history, exam, reviewing outside data, placing orders, documenting exam and treatment plan, and counseling patient) on [DATE].
--- NOTE | 2023-09-20 14:31 | SUR.OPER ---
EGD SCOPE 048
--- NOTE | 2023-09-20 14:45 | PM.OP.EGD ---
Operative Date/Time/Diagnoses Date of procedure: 09/20/23 Time of procedure: 14:45 Pre-op diagnosis: Abnormal imaging Post-op diagnosis: same Procedure & Clinicians Study performed: Esophagogastroduodenoscopy Same procedure as scheduled: Yes Surgeon: Marco Jerome Procedure Notes Procedure in detail: Surgeon: Marco Jerome MD Anesthesia: Rita Cunningham CRNA A timeout was performed. A bite blocked was placed. The patient was positioned in the left lateral decubitus position. Anesthesia was administered. The endoscope was inserted through the bite block and passed through the esophagus and stomach and into the duodenum. The duodenal mucosa appeared normal. The scope was withdrawn into the duodenal bulb and no abnormalities were seen. The scope was withdrawn into the stomach. There was antritis and some small shallow ulcerations in the antrum. Random biopsies were taken with cold forceps from the antral mucosa. The rest of the stomach was normal. The scope was retroflexed and no significant hiatal hernia was seen. The scope was withdrawn into the esophagus and no abnormalities were seen. Specifically, there was no mass or stricture in the distal esophagus. The remainder of the esophagus was normal. The scope was withdrawn. The patient was awakened and brought to recovery. Sedation time: 4 minutes Findings: Antritis and small shallow ulcerations in the antrum, normal esophagus Post-procedure Disposition: PACU
[2023-09-20 14:46] VITALS: BP 116/63; PULSE 74; RESP 22; TEMP 36.5; O2SAT 94
[2023-09-20 14:52] VITALS: BP 136/64; PULSE 73; RESP 25; O2SAT 93
[2023-09-20 14:57] VITALS: BP 123/60; PULSE 70; RESP 20; O2SAT 94
[2023-09-20 15:02] VITALS: BP 143/66; PULSE 76; RESP 21; TEMP 37; O2SAT 98
[2023-09-20 15:05] VITALS: BP 146/68; PULSE 74; RESP 18; TEMP 36.9; O2SAT 99
== END 2023-09-20 15:40 | disposition home or self-care (01) ==
PROVIDERS: Family Provider Internal Medicine Geriatric Medicine; PCP Internal Medicine Geriatric Medicine; Referring Provider Surgery; Visit Provider Surgery
PROC: 0DJ08ZZ Inspection of Upper Intestinal Tract, Via Natural or Artificial Opening Endoscopic (ICD-10-PCS; CPT 43235; principal; 2023-09-20 15:00)
DX: R93.3 Abnormal findings on diagnostic imaging of other parts of digestive tract (principal); K29.50 Unspecified chronic gastritis without bleeding; K25.9 Gastric ulcer, unspecified as acute or chronic, without hemorrhage or perforation; K31.9 Disease of stomach and duodenum, unspecified
CPT/HCPCS: 43239; J2704

== ENCOUNTER → 2024-01-31 08:15 | Outpatient (CLI) | payer MEDICARE, SELFPAY ==
[2024-01-31 09:09] LABS: Add Manual Diff / Slide Review NO; Basophils Absolute Auto 0 /uL (0-100); Basophils Percent Auto 0.8 % (0-2); Eosinophils Absolute Auto 100 /uL (0-450); Eosinophils Percent Auto 2.1 % (2-4); Hematocrit 36.7 % (36-46); Hemoglobin 12.4 g/dL (12.0-16.0); Lymphocytes Absolute Auto 1600 /uL (1100-4500); Lymphocytes Percent Auto 46.3 % (25-40); Mean Corpuscular HGB Conc 33.8 % (30-36); Mean Corpuscular Hemoglobin 33.2 PG (26-34); Mean Corpuscular Volume 98.4 fL (80-100); Monocytes Absolute Auto 300 /uL (0-900); Monocytes Percent Auto 9.5 % (3-14); Neutrophils Absolute Auto 1400 /uL (1500-7000); Neutrophils Percent Auto 41.3 % (50-75); Platelet Count 193 X10^3/uL (150-400); Red Blood Cell Count 3.73 X10^6/uL (4.0-5.2); Red Cell Distribution Width 13.3 % (11.6-14.8); White Blood Cell Count 3.5 X10^3/uL (4.5-11.0)
[2024-01-31 09:15] LABS: Creatinine Urine Random 47.83 mg/dL
[2024-01-31 09:23] LABS: Hemoglobin A1C% w Est Avg Glu 5.8 % (4.0-6.0)
[2024-01-31 09:26] LABS: Microalbumin Urine Random < 0.6 mg/dL (0-1.6)
[2024-01-31 09:33] LABS: Alanine Aminotransferase 26 IU/L (<35); Albumin Globulin Ratio 1.7 (1.0-2.8); Alkaline Phosphatase 58 U/L (38-126); Aspartate Aminotransferase 28 IU/L (14-36); BUN Creatinine Ratio 22.9 (6-22); Bilirubin Total 0.5 mg/dL (0.2-1.3); Blood Urea Nitrogen 16 mg/dL (7-17); Calcium 9.3 mg/dL (8.4-10.2); Carbon Dioxide 29 mmol/L (22-32); Chloride 102 mmol/L (98-107); Cholesterol 147 mg/dL (140-199); Estimated Glomerular Filt Rate > 60 mL/min (>60); Globulin 2.3 g/dL (1.7-4.1); Glucose 106 mg/dL (80-110); HDL Cholesterol 94 mg/dL (40-60); HEMOLYSIS < 15 (0-50); LDL Cholesterol Calculated 40 mg/dL (<100); Sodium 132 mmol/L (137-145); Total Protein 6.3 g/dL (6.3-8.2); Triglycerides 64 mg/dL (35-150)
[2024-01-31 09:48] LABS: Vitamin D 25 Hydroxy (D3) 35.3 ng/mL (30.0-100.0)
== END ==
PROVIDERS: Family Provider Internal Medicine Geriatric Medicine; PCP Internal Medicine Geriatric Medicine; Referring Provider Internal Medicine Geriatric Medicine; Visit Provider Internal Medicine Geriatric Medicine
DX: E11.9 Type 2 diabetes mellitus without complications (principal); M81.0 Age-related osteoporosis without current pathological fracture; E78.2 Mixed hyperlipidemia
CPT/HCPCS: 36415; 80053; 80061; 82043; 82306; 82570; 83036; 85025

== ENCOUNTER → 2024-06-03 09:51 | Outpatient (CLI) | payer MEDICARE, SELFPAY ==
--- NOTE | 2024-06-03 09:52 | DI.MG.S_ITS ---
MM screening mammo BI: 06/03/2024. BI-RADS: 2 CLINICAL: 84-year old female for bilateral screening mammogram. Tyrer-Cuzick lifetime risk of 0.6%. No personal or first-degree family history of breast cancer. PRIOR EXAMS 04/16/2023, 11/08/2021, 09/13/2020, 09/12/2019, 08/29/2018, 08/09/2017, 07/13/2016, 07/08/2015. MAMMOGRAPHY TECHNIQUE: 2D and 3D (tomosynthesis) digital mammographic views obtained, with additional images as needed for full coverage. Current study was also evaluated with a Computer Aided Detection (CAD) system. DENSITY D. The breasts are extremely dense, which lowers the sensitivity of mammography. MAMMOGRAPHY FINDINGS Bilateral: Benign-appearing calcifications noted. There are no suspicious masses, calcifications, or other findings in the breast. No significant change from comparison. IMPRESSION: * No evidence of malignancy with benign findings. RECOMMENDATIONS Bilateral * Annual screening mammography. OVERALL ASSESSMENT CATEGORY BI-RADS-2: Benign. The [employer] recommends annual screening mammography beginning at age 40 for women with average risk of breast cancer. ELECTRONICALLY SIGNED: Sailaja Sawyer M.D. on 06/03/2024 at 12:36:46 PM PT Interpreting Station ID: [id number]
== END ==
PROVIDERS: Family Provider Internal Medicine Geriatric Medicine; PCP Internal Medicine Geriatric Medicine; Referring Provider Internal Medicine Geriatric Medicine; Visit Provider Internal Medicine Geriatric Medicine
DX: Z12.31 Encounter for screening mammogram for malignant neoplasm of breast (principal); R92.343 Mammographic extreme density, bilateral breasts
CPT/HCPCS: 77063; 77067

== ENCOUNTER → 2024-06-20 07:32 | Outpatient (CLI) | payer MEDICARE, SELFPAY ==
[2024-06-20 08:54] LABS: Add Manual Diff / Slide Review NO; Basophils Absolute Auto 0 /uL (0-100); Basophils Percent Auto 0.7 % (0-2); Eosinophils Absolute Auto 100 /uL (0-450); Eosinophils Percent Auto 2.7 % (2-4); Hematocrit 36.6 % (36-46); Hemoglobin 12.3 g/dL (12.0-16.0); Lymphocytes Absolute Auto 1400 /uL (1100-4500); Lymphocytes Percent Auto 36.9 % (25-40); Mean Corpuscular HGB Conc 33.8 % (30-36); Mean Corpuscular Hemoglobin 33.1 PG (26-34); Mean Corpuscular Volume 97.9 fL (80-100); Monocytes Absolute Auto 400 /uL (0-900); Monocytes Percent Auto 11.2 % (3-14); Neutrophils Absolute Auto 1800 /uL (1500-7000); Neutrophils Percent Auto 48.5 % (50-75); Platelet Count 191 X10^3/uL (150-400); Red Blood Cell Count 3.74 X10^6/uL (4.0-5.2); Red Cell Distribution Width 13.2 % (11.6-14.8); White Blood Cell Count 3.8 X10^3/uL (4.5-11.0)
[2024-06-20 09:16] LABS: Erythrocyte Sedimentation Rate 6 MM/HR (0-20)
[2024-06-20 09:36] LABS: Alanine Aminotransferase 18 IU/L (<35); Albumin 3.9 g/dL (3.5-5.0); Albumin Globulin Ratio 1.9 (1.0-2.8); Alkaline Phosphatase 55 U/L (38-126); Aspartate Aminotransferase 26 IU/L (14-36); BUN Creatinine Ratio 23.2 (6-22); Bilirubin Total 0.7 mg/dL (0.2-1.3); Blood Urea Nitrogen 16 mg/dL (7-17); Calcium 9.3 mg/dL (8.4-10.2); Carbon Dioxide 29 mmol/L (22-32); Chloride 101 mmol/L (98-107); Estimated Glomerular Filt Rate > 60 mL/min (>60); Globulin 2.1 g/dL (1.7-4.1); Glucose 116 mg/dL (70-99); HEMOLYSIS < 15 (0-50); Sodium 134 mmol/L (137-145)
[2024-06-21 06:09] LABS: CRP, High Sensitivity 0.21 mg/L (0.00-3.00)
== END ==
PROVIDERS: Family Provider Internal Medicine Geriatric Medicine; PCP Internal Medicine Geriatric Medicine; Referring Provider Ophthalmology; Visit Provider Ophthalmology
DX: H53.121 Transient visual loss, right eye (principal); H50.60 Mechanical strabismus, unspecified
CPT/HCPCS: 36415; 80053; 85025; 85651; 86140

== ENCOUNTER → 2024-07-01 13:14 | Outpatient (CLI) | payer MEDICARE, SELFPAY ==
--- NOTE | 2024-07-01 13:16 | DI.MRI.S_ITS ---
PROCEDURE: MR STROKE Pre- and post-contrast brain MRI, non-contrast brain MR angiogram, pre- and postcontrast neck MR angiogram INDICATIONS: visual disturbances/Mechanical strabismus TECHNIQUE: Brain: Noncontrast axial T1 spin echo, axial T2 fast spin echo, sagittal and axial FLAIR, coronal T2 fast spin echo, axial gradient echo, axial diffusion and ADC through the brain. After the administration of contrast, axial 3D VIBE of the cranial vasculature and brain. Brain MRA: Non-contrast 3-D time of flight MR angiogram, with multiple qtcchts-jkotfwpwj-yrkpkbownr (MIP) reformats performed. Neck MRA: Axial and sagittal TruFISP through the neck. Coronal dynamic MR angiogram during administration of contrast in the arterial and venous phases, with 3-dimenstional azgwydj-nxxvxaxpx-xcqbinjhoc (MIP) reformats constructed from subtraction images. COMPARISON: [facility], MR, MR STROKE, 06/15/2023, 13:21. FINDINGS: Image quality: Excellent. BRAIN: CSF spaces: Ventricles are normal in size and shape. Basal cisterns are patent. No extra-axial fluid collections. Brain: No intracranial bleeds or mass effects. Velazquez-white matter interface is normal. Diffusion weighted images show no acute infarct. Brainstem appears normal. Normal intravascular flow voids are present. No abnormal intracranial enhancement. Age-appropriate atrophy and confluent white matter chronic ischemic change noted in the periventricular deep white matter as well as the parts Skull and face: Calvarial marrow signal is normal. Orbits appear normal. Sinuses: Left maxillary sinus mucosal thickening BRAIN MR ANGIOGRAM: Anterior circulation: Intracranial internal carotid arteries are normal in size and enhancement. The flow within the paired anterior cerebral arteries is normal and symmetric. The flow within the middle cerebral arteries is normal and symmetric. The anterior communicating artery is seen. No stenoses, occlusions, or aneurysms. Posterior circulation: The visualized portions of the vertebral arteries demonstrate normal caliber, and join to form a normal appearing basilar artery. The flow within the posterior cerebral arteries is normal and symmetric. No stenoses, occlusions, or aneurysms. 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 The P2 segment is supplied by a widely patent posterior communicating artery. Remainder of the distal vasculature unremarkable. NECK MR ANGIOGRAM: Carotids: Great vessels demonstrate a conventional anatomy as they arise from the aortic arch. The origins of the common carotid arteries appear patent. The calibers and courses of both common carotid arteries are normal. The bifurcation regions appear normal bilaterally. The internal carotid arteries demonstrate normal course and caliber. Posterior circulation: The origins of the vertebral arteries appear patent. More superior portions of both vertebral arteries demonstrate normal course and caliber, and join to form a normal appearing basilar artery. Miscellaneous: Subclavian arteries appear patent. Pre-contrast images through the neck show no soft tissue abnormalities. IMPRESSION: Atrophy and chronic ischemic change without acute hemorrhage, infarct or mass lesion Unremarkable MR angiogram of the head and neck. No significant stenosis, aneurysm or malformation Approved by: Thien Morrison M.D. on 07/01/2024 at 17:26
== END ==
PROVIDERS: Family Provider Internal Medicine Geriatric Medicine; PCP Internal Medicine Geriatric Medicine; Referring Provider Ophthalmology; Visit Provider Ophthalmology
DX: H53.19 Other subjective visual disturbances (principal); H50.60 Mechanical strabismus, unspecified
CPT/HCPCS: 70544; 70549; 70553; A9579